=== PATIENT | male | born 1975 | race Caucasian/White ===

== ENCOUNTER 2016-08-18 18:03 | Emergency (ER) | payer SELFPAY ==
[~2016-08-18] VITALS: Ht 182.9 cm; Wt 81.4 kg
[~2016-08-18 18:03] MED LIST: LORT5TAB PO; Z.0.NO CURRENT MEDS
[2016-08-18 18:20] VITALS: BP 145/96; PULSE 78; RESP 18; TEMP 99.1; O2SAT 99
[2016-08-18] MEDS ORDERED: SODIUM CHLOR 0.9% 1000 ML INJ 1,000 ML IV SCH (18:56)
[2016-08-18] MEDS ORDERED: PENICILLIN G BENZATHINE 1,200,000 UNITS/2 ML SYRINGE IM ONE (19:00)
[2016-08-18] MEDS ORDERED: SODIUM CHLORIDE 0.9% FLUSH 5 ML FLUSH IVF PRN (19:00)
[2016-08-18 19:15] VITALS: BP 141/76; PULSE 64; RESP 18; TEMP 97.8; O2SAT 96
[2016-08-18 19:20] VITALS: O2SAT 96
[2016-08-18 19:29] LABS: AUTOMATED NEUTROPHIL # 4.5 TH/MM3 (1.8-7.7); BASOPHIL % 0.8 % (0.0-2.0); EOSINOPHIL # 0.2 TH/MM3 (0-0.4); EOSINOPHIL % 2.7 % (0.0-4.0); HEMATOCRIT 41.8 % (39.0-51.0); HEMO FLAGS DIFF FINAL; LYMPH % 16.6 % (9.0-44.0); MEAN CELL VOLUME 86.3 FL (80.0-100.0); MEAN CORPUSCULAR HEMOGLOBIN 29.4 PG (27.0-34.0); MEAN CORPUSCULAR HGB CONC 34.1 % (32.0-36.0); MONO % 8.7 % (0.0-8.0); NEUT % 71.2 % (16.0-70.0); PLATELET COUNT 185 TH/MM3 (150-450); RED BLOOD COUNT 4.85 MIL/MM3 (4.50-5.90); RED CELL DISTRIBUTION WIDTH 12.5 % (11.6-17.2); WHITE BLOOD COUNT 6.2 TH/MM3 (4.0-11.0)
[2016-08-18 19:38] LABS: CHLORIDE 107 MEQ/L (98-107); POTASSIUM 4.5 MEQ/L (3.5-5.1); SODIUM (NA) 141 MEQ/L (136-145)
[2016-08-18 19:42] LABS: ANION GAP 8 MEQ/L (5-15); BICARBONATE 25.8 MEQ/L (21.0-32.0)
[2016-08-18 19:43] LABS: BLOOD UREA NITROGEN 11 MG/DL (7-18)
[2016-08-18 19:45] LABS: ALT (GPT) 19 U/L (12-78); AST (GOT) 21 U/L (15-37); GLOMERULAR FILTRATION RATE 83 ML/MIN (>89)
[2016-08-18 19:47] LABS: TOTAL BILIRUBIN ADULT 0.4 MG/DL (0.2-1.0)
[2016-08-18 19:48] LABS: ALKALINE PHOSPHATASE 79 U/L (45-117)
[2016-08-18 20:06] LABS: BLOOD, URINE NEG (NEG); GLUCOSE,URINE NEG (NEG); KETONE, URINE NEG (NEG); NITRITE,URINE NEG (NEG); PH, URINE 6.5 (5.0-8.5)
[2016-08-18 20:27] LABS: METHOD OF COLLECTION VOIDED; URINE COLOR YELLOW (YELLW/STRAW)
[2016-08-18 20:29] LABS: COMMENT (UR) CULT NOT INDICATED; CULTURE IF INDICATED CULT NOT INDICATED; SQUAMOUS EPITHELIAL CELL URINE 0-2 /hpf (0-5); WBC, URINE 0-2 /hpf (0-5)
[2016-08-18 20:30] VITALS: BP 152/72; PULSE 57; RESP 18; O2SAT 97
[2016-08-18] MEDS ORDERED: ZOFR4TAB3 SL (20:42)
--- NOTE | 2016-08-18 20:42 | PD ---
HPI Chief Complaint: Abdominal Pain Time Seen by Provider: 18:56 Travel History International Travel<30 days: No Contact w/Intl Traveler<30days: No Traveled to known affect area: No History of Present Illness HPI Patient is a 41-year-old male presents emergency Department with 2 complaints. Patient states she's been having some sore throat as well as foul taste in his mouth. Patient thinks that he has strep throat. States she's also been having some anterior neck pain. Denies any cough. Patient states he just got out of care home and has not been able to follow up with his primary care physician and his secondary complaint is a chronic abdominal pain which she's been having for approximately year which is gradually gotten worse since he became sick with strep throat. He states his pain is epigastric in nature mild not accompanied with any nausea or vomiting. Denies any fever denies any sputum production denies any diarrhea or blood in the stool. PFSH Past Medical History Medical History: Denies Significant Hx Diminished Hearing: No Influenza Vaccination: No ?: Not Social History Alcohol Use: Yes (occ) Tobacco Use: Yes Substance Use: No Allergies-Medications (Allergen,Severity, Reaction): Coded Allergies: Tetracycline (Verified Adverse Reaction, Intermediate, "VERY SICK", 08/18/16 ) Reported Meds & Prescriptions Reported Meds & Active Scripts Active Zofran Odt (Ondansetron Odt) 4 Mg Tab 4 Mg SL Q6HR PRN Review of Systems Except as stated in HPI: all other systems reviewed are Neg Physical Exam Narrative GENERAL: Well-developed well-nourished in no apparent distress SKIN: Warm and dry. HEAD: Atraumatic. Normocephalic. EYES: Pupils equal and round. No scleral icterus. No injection or drainage. ENT: No nasal bleeding or discharge. Mucous membranes pink and moist however his lips are cracked and dry. Tonsils are 3+ mildly erythematous and do have some mild discharge. Anterior neck tenderness without any obvious lymphadenopathy. NECK: Trachea midline. No JVD. CARDIOVASCULAR: Regular rate and rhythm. No murmur appreciated. RESPIRATORY: No accessory muscle use. Clear to auscultation. Breath sounds equal bilaterally. GASTROINTESTINAL: Abdomen soft, non-tender, nondistended. Hepatic and splenic margins not palpable. MUSCULOSKELETAL: No obvious deformities. No clubbing. No cyanosis. No edema. NEUROLOGICAL: Awake and alert. No obvious cranial nerve deficits. Motor grossly within normal limits. Normal speech. PSYCHIATRIC: Appropriate mood and affect; insight and judgment normal. Data Data Last Documented VS Vital Signs Date Time Temp Pulse Resp B/P Pulse Ox O2 Delivery O2 Flow Rate FiO2 08/18/16 21:19 97.3 62 18 154/85 97 08/18/16 20:30 Room Air Orders Complete Blood Count With Diff (08/18/16 18:56) Comprehensive Metabolic Panel (08/18/16 18:56) Lipase (08/18/16 18:56) Urinalysis - C+S If Indicated (08/18/16 18:56) Iv Access Insert/Monitor (08/18/16 18:56) Ecg Monitoring (08/18/16 18:56) Oximetry (08/18/16 18:56) Sodium Chlor 0.9% 1000 Ml Inj (Ns 1000 M (08/18/16 18:56) Sodium Chloride 0.9% Flush (Ns Flush) (08/18/16 19:00) Penicillin G Benzathine Inj (Bicillin L- (08/18/16 19:00) Labs Laboratory Tests Test 08/18/16 08/18/16 19:20 19:58 White Blood Count 6.2 TH/MM3 Red Blood Count 4.85 MIL/MM3 Hemoglobin 14.3 GM/DL Hematocrit 41.8 % Mean Corpuscular Volume 86.3 FL Mean Corpuscular Hemoglobin 29.4 PG Mean Corpuscular Hemoglobin 34.1 % Concent Red Cell Distribution Width 12.5 % Platelet Count 185 TH/MM3 Mean Platelet Volume 8.2 FL Neutrophils (%) (Auto) 71.2 % Lymphocytes (%) (Auto) 16.6 % Monocytes (%) (Auto) 8.7 % Eosinophils (%) (Auto) 2.7 % Basophils (%) (Auto) 0.8 % Neutrophils # (Auto) 4.5 TH/MM3 Lymphocytes # (Auto) 1.0 TH/MM3 Monocytes # (Auto) 0.5 TH/MM3 Eosinophils # (Auto) 0.2 TH/MM3 Basophils # (Auto) 0.0 TH/MM3 CBC Comment DIFF FINAL Differential Comment Sodium Level 141 MEQ/L Potassium Level 4.5 MEQ/L Chloride Level 107 MEQ/L Carbon Dioxide Level 25.8 MEQ/L Anion Gap 8 MEQ/L Blood Urea Nitrogen 11 MG/DL Creatinine 1.00 MG/DL Estimat Glomerular Filtration 83 ML/MIN Rate Random Glucose 111 MG/DL Calcium Level 8.1 MG/DL Total Bilirubin 0.4 MG/DL Aspartate Amino Transf 21 U/L (AST/SGOT) Alanine Aminotransferase 19 U/L (ALT/SGPT) Alkaline Phosphatase 79 U/L Total Protein 7.0 GM/DL Albumin 3.3 GM/DL Lipase 154 U/L Urine Collection Type VOIDED Urine Color YELLOW Urine Turbidity CLEAR Urine pH 6.5 Urine Specific [place] 1.020 Urine Protein NEG mg/dL Urine Glucose (UA) NEG mg/dL Urine Ketones NEG mg/dL Urine Occult Blood NEG Urine Nitrite NEG Urine Bilirubin NEG Urine Leukocyte Esterase NEG Urine WBC 0-2 /hpf Urine Squamous Epithelial 0-2 /hpf Cells Microscopic Urinalysis Comment CULT NOT INDICATED MDM Medical Decision Making Medical Screen Exam Complete: Yes Emergency Medical Condition: Yes Differential Diagnosis Strep throat, chronic abdominal pain, URI. Narrative Course Roomed in ED. Appears mildly dehydrated. S/S c/w streptococcal pharyngitis. secondary complaint of chronic abdominal pain. Labs reassuring. No indication for acute imaging of his abdomen or chest. Stable for discharge. Bicillin in ED. Feeling better after fluids. Diagnosis Primary Impression: Streptococcal pharyngitis Additional Impression: Abdominal cramping Referrals: Eric Stein MD Med/Other Pt SpecificInfo: Prescription(s) given Scripts Ondansetron Odt (Zofran Odt)4 Mg Tab4 Mg SL Q6HR PRN (Nausea/Vomiting) #30 TAB Ref 0 Prov:Reid Gilbert MD 08/18/16 Disposition: 01 DISCHARGE HOME Condition: Stable Reid Gilbert MD Aug 18, 2016 20:42
[2016-08-18 21:19] VITALS: BP 154/85; TEMP 97.3
== END 2016-08-18 21:20 | disposition home or self-care (01) ==
LOC: PHED 18:03
DX: J02.0 Streptococcal pharyngitis (principal); R10.9 Unspecified abdominal pain; Z72.0 Tobacco use
CPT/HCPCS: 80053; 81001; 83690; 85025; 96360; 96372; 99284; J0561; J7030